=== PATIENT | male | born 1935 | race Caucasian/White ===

== ENCOUNTER 2017-01-07 15:48 | Inpatient (IN) | payer MEDICARE, OTHER ==
[~2017-01-07] VITALS: Ht 162.6 cm; Wt 78.1 kg
[~2017-01-07 15:48] MED LIST: ALFU10TA30 PO; CETI-290 PO; FENO45CA PO; MONT10TA21 PO; ROPI0.255 PO; SAW80CAP2 PO; TIOT185 IH; TRAM50TA4 PO; [UNRECOGNIZED DRUG - CODE] PO
[2017-01-07] MEDS ORDERED: SODIUM CHLORIDE 0.9% 100 ML ONE (15:52)
[2017-01-07] MEDS ORDERED: IOVERSOL 350 MG/ML 100 ML VIAL ONE (15:52)
[2017-01-07 16:01] LABS: EOSINOPHILS % (AUTO) 2.2 % (1.0-6.0); HEMATOCRIT 45.6 % (41-53); HEMOGLOBIN 15.8 g/dL (13.5-17.5); LYMPHOCYTES # (AUTO) 1.9 K/uL (1.0-4.8); LYMPHOCYTES % (AUTO) 25.9 % (22.0-44.0); MEAN CORPUSCULAR HEMOGLOBIN 34.1 pg (26.0-34.0); MEAN CORPUSCULAR HGB CONC 34.6 G/dL (31.0-37.0); MEAN CORPUSCULAR VOLUME 99 fL (80-100); MONOCYTES # (AUTO) 0.9 K/uL (0.1-1.0); MONOCYTES % (AUTO) 11.8 % (2.0-9.0); NEUTROPHILS # (AUTO) 4.4 K/uL (1.8-7.7); NEUTROPHILS % (AUTO) 59.1 % (40.0-70.0); PLATELET COUNT (AUTO) 203 K/uL (150-450); RED BLOOD CELL COUNT(AUTO) 4.63 MIL/uL (4.50-5.90); WHITE BLOOD COUNT (AUTO) 7.4 K/uL (4.5-11.0)
[2017-01-07] MEDS ORDERED: FINA5TAB41 PO (16:05)
[2017-01-07] MEDS ORDERED: GABA-531 PO (16:05)
[2017-01-07] MEDS ORDERED: TIOT185 IH (16:05)
[2017-01-07] MEDS ORDERED: ROPI2 PO (16:05)
[2017-01-07] MEDS ORDERED: TAMS0.4C32 PO (16:05)
[2017-01-07] MEDS ORDERED: CARB1TAB42 PO (16:05)
[2017-01-07 16:09] LABS: ANION GAP 7 mmol/L (8-16); CALCIUM, TOTAL 8.9 mg/dL (8.8-10.5); CARBON DIOXIDE 26 mmol/L (22-29); CHLORIDE 109 mmol/L (98-107); CREATININE 1.24 mg/dL (0.60-1.30); GLOMERULAR FILTR. RATE CALC 56 mL/min (>60); POTASSIUM 3.7 mmol/L (3.5-5.1); SODIUM SERUM 142 mmol/L (136-145); UREA NITROGEN, BLOOD 22 mg/dL (7-18)
[2017-01-07 16:34] LABS: ALANINE AMINOTRANSFERASE 6 U/L (12-78); ALBUMIN 3.4 g/dL (3.4-5.0); ASPARTATE AMINOTRANSFERASE 18 U/L (15-37); BILIRUBIN,TOTAL 1.1 mg/dL (0.1-1.0); CREATINE KINASE MB 2.2 ng/mL (0-5); CREATINE KINASE, TOTAL 110 U/L (39-308); TOTAL PROTEIN, SERUM 6.7 g/dL (6.4-8.2)
[2017-01-07] MEDS ORDERED: MORPHINE SULFATE 2 MG/ML SYRINGE IVP ONE (17:00)
[2017-01-07] MEDS ORDERED: ONDANSETRON HCL 4 MG/2 ML VIAL IVP ONE (17:00)
[2017-01-07] MEDS ORDERED: ACETAMINOPHEN 325 MG TABLET PO PRN ×2 (17:30→19:00)
[2017-01-07] MEDS ORDERED: 0.9% SODIUM CHLORIDE 10 ML SYRINGE IVP PRN ×2 (17:30→19:00)
[2017-01-07] MEDS ORDERED: ONDANSETRON HCL 4 MG/2 ML VIAL IVP PRN ×2 (17:30→19:00)
[2017-01-07 18:42] VITALS: BP 148/89
[2017-01-07] MEDS ORDERED: OxyCODONE HCL/ACETAMINOPHEN 5-325 MG TABLET PO PRN ×2 (19:00)
[2017-01-07] MEDS ORDERED: MAGNESIUM HYDROXIDE SUSPENSION 30 ML UDCUP PO PRN (19:00)
[2017-01-07 19:47] VITALS: BP 141/87
[2017-01-07] MEDS: FINASTERIDE 5 MG TABLET PO SCH (21:05)
[2017-01-07] MEDS: TIOTROPIUM BROMIDE 18 MCG/INH HANDIHALER [5] IH SCH (21:05)
[2017-01-07] MEDS: PANTOPRAZOLE SODIUM 40 MG/VIAL IVP SCH (21:05)
[2017-01-07] MEDS: DOCUSATE SODIUM 100 MG CAPSULE PO SCH (21:05)
[2017-01-07] MEDS: ASPIRIN 325 MG EC TABLET PO SCH (21:06)
[2017-01-07] MEDS: TAMSULOSIN HCL 0.4 MG CAPSULE PO SCH (21:25)
[2017-01-07] MEDS: CARBIDOPA/LEVODOPA 50-200 MG ER TABLET PO SCH (21:25)
[2017-01-07] MEDS: GABAPENTIN 300 MG CAPSULE PO SCH (21:25)
[2017-01-07 21:36] VITALS: BP 141/87
[2017-01-08 00:19] VITALS: BP 101/60
[2017-01-08 04:11] VITALS: BP 105/60
[2017-01-08 06:44] LABS: BASOPHILS % (AUTO) 0.3 % (0.0-2.0); EOSINOPHILS % (AUTO) 4.9 % (1.0-6.0); HEMATOCRIT 47.1 % (41-53); HEMOGLOBIN 15.9 g/dL (13.5-17.5); LYMPHOCYTES # (AUTO) 1.8 K/uL (1.0-4.8); LYMPHOCYTES % (AUTO) 25.4 % (22.0-44.0); MEAN CORPUSCULAR HEMOGLOBIN 33.6 pg (26.0-34.0); MEAN CORPUSCULAR HGB CONC 33.7 G/dL (31.0-37.0); MEAN CORPUSCULAR VOLUME 100 fL (80-100); MONOCYTES # (AUTO) 0.9 K/uL (0.1-1.0); MONOCYTES % (AUTO) 12.5 % (2.0-9.0); NEUTROPHILS % (AUTO) 56.9 % (40.0-70.0); PLATELET COUNT (AUTO) 180 K/uL (150-450); RED BLOOD CELL COUNT(AUTO) 4.73 MIL/uL (4.50-5.90); RED CELL DISTRIBUTION WIDTH 15.2 % (11.5-14.5); WHITE BLOOD COUNT (AUTO) 7.1 K/uL (4.5-11.0)
[2017-01-08 06:45] LABS: ANION GAP 7 mmol/L (8-16); CALCIUM, TOTAL 8.8 mg/dL (8.8-10.5); CARBON DIOXIDE 27 mmol/L (22-29); CHLORIDE 109 mmol/L (98-107); CREATININE 1.09 mg/dL (0.60-1.30); GLOMERULAR FILTR. RATE CALC > 60 mL/min (>60); POTASSIUM 4.3 mmol/L (3.5-5.1); SODIUM SERUM 143 mmol/L (136-145); UREA NITROGEN, BLOOD 21 mg/dL (7-18)
[2017-01-08 07:28] VITALS: BP 110/60
[2017-01-08] MEDS: TAMSULOSIN HCL 0.4 MG CAPSULE PO SCH (09:20)
[2017-01-08] MEDS: DOCUSATE SODIUM 100 MG CAPSULE PO SCH ×2 (09:20→20:22)
[2017-01-08] MEDS: TIOTROPIUM BROMIDE 18 MCG/INH HANDIHALER [5] IH SCH (09:20)
[2017-01-08] MEDS: PANTOPRAZOLE SODIUM 40 MG/VIAL IVP SCH (09:20)
[2017-01-08] MEDS: GABAPENTIN 300 MG CAPSULE PO SCH ×2 (09:20→20:22)
[2017-01-08] MEDS: FINASTERIDE 5 MG TABLET PO SCH (09:21)
[2017-01-08] MEDS: CARBIDOPA/LEVODOPA 50-200 MG ER TABLET PO SCH ×2 (10:19→20:28)
[2017-01-08] MEDS ORDERED: DENTURE ADHESIVE 68 GM CREAM DT PRN (10:30)
[2017-01-08 11:44] VITALS: BP 101/58
[2017-01-08 15:44] VITALS: BP 104/57
[2017-01-08 19:36] VITALS: BP 112/52
[2017-01-08] MEDS: ASPIRIN 325 MG EC TABLET PO SCH (20:22)
[2017-01-09] VITALS (7 sets, daily range): BP systolic 110–136; BP diastolic 55–77
[2017-01-09] MEDS: TIOTROPIUM BROMIDE 18 MCG/INH HANDIHALER [5] IH SCH (08:14)
[2017-01-09] MEDS: PANTOPRAZOLE SODIUM 40 MG/VIAL IVP SCH (08:15)
[2017-01-09] MEDS: DOCUSATE SODIUM 100 MG CAPSULE PO SCH ×2 (08:15→20:21)
[2017-01-09] MEDS: TAMSULOSIN HCL 0.4 MG CAPSULE PO SCH (08:16)
[2017-01-09] MEDS: FINASTERIDE 5 MG TABLET PO SCH (08:16)
[2017-01-09] MEDS: GABAPENTIN 300 MG CAPSULE PO SCH ×2 (08:16→20:21)
[2017-01-09] MEDS: CARBIDOPA/LEVODOPA 50-200 MG ER TABLET PO SCH ×3 (08:16→20:21)
[2017-01-09] MEDS: ASPIRIN 325 MG EC TABLET PO SCH (20:21)
[2017-01-10 04:38] VITALS: BP 126/77
[2017-01-10 07:21] VITALS: BP 133/84
[2017-01-10] MEDS: TIOTROPIUM BROMIDE 18 MCG/INH HANDIHALER [5] IH SCH (08:50)
[2017-01-10] MEDS: DOCUSATE SODIUM 100 MG CAPSULE PO SCH (08:50)
[2017-01-10] MEDS: PANTOPRAZOLE SODIUM 40 MG/VIAL IVP SCH (08:50)
[2017-01-10] MEDS: TAMSULOSIN HCL 0.4 MG CAPSULE PO SCH (08:50)
[2017-01-10] MEDS: GABAPENTIN 300 MG CAPSULE PO SCH (08:50)
[2017-01-10] MEDS: FINASTERIDE 5 MG TABLET PO SCH (08:50)
[2017-01-10] MEDS: CARBIDOPA/LEVODOPA 50-200 MG ER TABLET PO SCH ×2 (08:51→15:32)
[2017-01-10 11:20] VITALS: BP 139/77
[2017-01-10] MEDS ORDERED: ASPI-891 PO (15:17)
[2017-01-10] MEDS ORDERED: CARB1TAB42 PO (15:18)
[2017-01-10] MEDS ORDERED: PANT40TA25 PO (15:19)
[2017-01-10] MEDS ORDERED: DSS100 PO (15:19)
[2017-01-10] MEDS ORDERED: ROPI2 PO (15:20)
[2017-01-10] MEDS ORDERED: ACET-784 PO (15:21)
[2017-01-10] MEDS ORDERED: MOM30 PO (15:22)
[2017-01-10 15:52] VITALS: BP 100/56
[2017-01-11] MEDS ORDERED: TRAM50TA4 PO (12:42)
[2017-01-11] MEDS ORDERED: NAPR220T57 PO (12:42)
== END 2017-01-10 16:35 | DRG 562 ==
LOC: EMS 15:50 → 5S 18:06
PROVIDERS: ADMIT Internal Medicine; ATTEND Internal Medicine
DX: S42.002A Fracture of unspecified part of left clavicle, initial encounter for closed fracture (principal); J96.00 Acute respiratory failure, unspecified whether with hypoxia or hypercapnia; R53.1 Weakness; G20 Parkinson's disease; J44.9 Chronic obstructive pulmonary disease, unspecified; W19.XXXA Unspecified fall, initial encounter; E86.0 Dehydration; N40.0 Benign prostatic hyperplasia without lower urinary tract symptoms; R29.810 Facial weakness; I51.7 Cardiomegaly
CPT/HCPCS: 70496; 70551; 93005; 93306; 93880; 96374; 96375; 97162; 97167; 97530; 97535; 99291; C9113; J2270; J2405; J7050

== ENCOUNTER 2017-01-10 16:44 | Inpatient (IN) | payer MEDICARE, OTHER ==
[~2017-01-10] VITALS: Ht 167.6 cm; Wt 72.1 kg
[~2017-01-10 16:44] MED LIST changes: +ACET-784 PO; -ALFU10TA30 PO; +ASPI-891 PO; +CARB1TAB42 PO; -CETI-290 PO; +DSS100 PO; -FENO45CA PO; +FINA5TAB41 PO; +GABA-531 PO; +MOM30 PO; -MONT10TA21 PO; +PANT40TA25 PO; -ROPI0.255 PO; +ROPI2 PO; -SAW80CAP2 PO; +TAMS0.4C32 PO; -TRAM50TA4 PO; -[UNRECOGNIZED DRUG - CODE] PO
[2017-01-10 17:00] VITALS: BP 97/61
[2017-01-10] MEDS ORDERED: ACETAMINOPHEN 325 MG TABLET PO PRN ×2 (17:15)
[2017-01-10] MEDS ORDERED: MAGNESIUM HYDROXIDE SUSPENSION 30 ML UDCUP PO PRN (17:15)
[2017-01-10] MEDS ORDERED: ONDANSETRON HCL 4 MG TABLET PO PRN (17:15)
[2017-01-10] MEDS ORDERED: TEMAZEPAM 15 MG CAPSULE PO PRN (17:15)
[2017-01-10] MEDS ORDERED: DOCUSATE SODIUM 283 MG/5 ML MINI-ENEMA PR PRN (17:15)
[2017-01-10 20:47] LABS: APPEARANCE,URINE CLOUDY (CLEAR); GLUCOSE, URINE (UA) NEGATIVE (NEGATIVE); KETONES,URINE NEGATIVE (NEGATIVE); LEUKOCYTE ESTERASE ,URINE NEGATIVE (NEGATIVE); OCCULT BLOOD,URINE LARGE (NEGATIVE); PH,URINE 5.5 (5.0-8.0); PROTEIN,URINE NEGATIVE (NEGATIVE)
[2017-01-10 20:57] LABS: RBC,URINE 51-100 /HPF (0-2); SQUAMOUS EPITHELIAL CELL,UR Few /LPF (None Seen)
[2017-01-10] MEDS ORDERED: SENNA 187 MG TABLET PO SCH (21:00)
[2017-01-10] MEDS ORDERED: DOCUSATE SODIUM 100 MG CAPSULE PO SCH (21:00)
[2017-01-10] MEDS: CARBIDOPA/LEVODOPA 50-200 MG ER TABLET PO SCH (21:20)
[2017-01-10] MEDS: ASPIRIN 325 MG EC TABLET PO SCH (21:20)
[2017-01-10] MEDS: GABAPENTIN 300 MG CAPSULE PO SCH (21:20)
[2017-01-10 23:26] VITALS: BP 124/67
[2017-01-11 06:14] LABS: BASOPHILS % (AUTO) 0.4 % (0.0-2.0); EOSINOPHILS % (AUTO) 5.2 % (1.0-6.0); HEMATOCRIT 46.2 % (41-53); HEMOGLOBIN 15.7 g/dL (13.5-17.5); LYMPHOCYTES # (AUTO) 1.7 K/uL (1.0-4.8); LYMPHOCYTES % (AUTO) 20.9 % (22.0-44.0); MEAN CORPUSCULAR HEMOGLOBIN 33.8 pg (26.0-34.0); MEAN CORPUSCULAR HGB CONC 33.9 G/dL (31.0-37.0); MEAN CORPUSCULAR VOLUME 100 fL (80-100); MONOCYTES # (AUTO) 0.8 K/uL (0.1-1.0); NEUTROPHILS # (AUTO) 5.1 K/uL (1.8-7.7); NEUTROPHILS % (AUTO) 63.5 % (40.0-70.0); PLATELET COUNT (AUTO) 198 K/uL (150-450); RED BLOOD CELL COUNT(AUTO) 4.64 MIL/uL (4.50-5.90); RED CELL DISTRIBUTION WIDTH 14.9 % (11.5-14.5)
[2017-01-11 06:27] LABS: ALBUMIN 2.9 g/dL (3.4-5.0); ANION GAP 6 mmol/L (8-16); ASPARTATE AMINOTRANSFERASE 13 U/L (15-37); BILIRUBIN,TOTAL 1.3 mg/dL (0.1-1.0); CALCIUM, TOTAL 8.6 mg/dL (8.8-10.5); CARBON DIOXIDE 28 mmol/L (22-29); CHLORIDE 103 mmol/L (98-107); CREATININE 0.95 mg/dL (0.60-1.30); GLOMERULAR FILTR. RATE CALC > 60 mL/min (>60); SODIUM SERUM 137 mmol/L (136-145); TOTAL PROTEIN, SERUM 6.3 g/dL (6.4-8.2); UREA NITROGEN, BLOOD 14 mg/dL (7-18)
[2017-01-11 07:06] LABS: ALANINE AMINOTRANSFERASE 6 U/L (12-78)
[2017-01-11 08:23] VITALS: BP 118/73
[2017-01-11] MEDS: TIOTROPIUM BROMIDE 18 MCG/INH HANDIHALER [5] IH SCH (08:32)
[2017-01-11] MEDS: PANTOPRAZOLE SODIUM 40 MG DR TABLET PO SCH (08:33)
[2017-01-11] MEDS: FINASTERIDE 5 MG TABLET PO SCH (08:33)
[2017-01-11] MEDS: CARBIDOPA/LEVODOPA 50-200 MG ER TABLET PO SCH ×3 (08:33→21:08)
[2017-01-11] MEDS: TAMSULOSIN HCL 0.4 MG CAPSULE PO SCH (08:34)
[2017-01-11] MEDS: GABAPENTIN 300 MG CAPSULE PO SCH ×2 (08:34→21:08)
[2017-01-11] MEDS: DOCUSATE SODIUM 250 MG CAPSULE PO SCH (08:35)
[2017-01-11] MEDS: LIDOCAINE HCL 5% TRANSDERMAL PATCH TD SCH (09:16)
[2017-01-11] MEDS ORDERED: OxyCODONE HCL/ACETAMINOPHEN 5-325 MG TABLET PO PRN (09:45)
[2017-01-11] MEDS ORDERED: TRAM50TA4 PO (12:42)
[2017-01-11] MEDS ORDERED: NAPR220T57 PO (12:42)
[2017-01-11 16:39] VITALS: BP 93/57
[2017-01-11 16:50] VITALS: BP 110/64
[2017-01-11] MEDS: SENNA 187 MG TABLET PO SCH (21:08)
[2017-01-11] MEDS: ASPIRIN 325 MG EC TABLET PO SCH (21:09)
[2017-01-11] MEDS: -LIDODERM PATCH NOTE- MISC SCH ×2 (21:09)
[2017-01-12] VITALS: BP 109/61
[2017-01-12] MEDS: TraMADol HCL 50 MG TABLET PO PRN ×2 (04:55→09:34)
[2017-01-12 07:20] VITALS: BP 105/67
[2017-01-12] MEDS: TIOTROPIUM BROMIDE 18 MCG/INH HANDIHALER [5] IH SCH (08:34)
[2017-01-12] MEDS: LIDOCAINE HCL 5% TRANSDERMAL PATCH TD SCH (08:34)
[2017-01-12] MEDS: CARBIDOPA/LEVODOPA 50-200 MG ER TABLET PO SCH ×3 (08:34→21:13)
[2017-01-12] MEDS: TAMSULOSIN HCL 0.4 MG CAPSULE PO SCH (08:34)
[2017-01-12] MEDS: GABAPENTIN 300 MG CAPSULE PO SCH ×2 (08:35→21:13)
[2017-01-12] MEDS: PANTOPRAZOLE SODIUM 40 MG DR TABLET PO SCH (08:35)
[2017-01-12] MEDS: FINASTERIDE 5 MG TABLET PO SCH (08:35)
[2017-01-12] MEDS: DOCUSATE SODIUM 250 MG CAPSULE PO SCH (08:35)
[2017-01-12] MEDS: ENOXAPARIN SODIUM 40 MG/0.4 ML PF SYRINGE SQ SCH (10:54)
[2017-01-12] MEDS ORDERED: *NON-FORMULARY MED [ENTER DRUG, DOSE, FREQ IN COMMENTS] CLINICAL ONE ×2 (11:45)
[2017-01-12] MEDS: ROPINIROLE 4 MG PO SCH ×2 (13:00→21:14)
[2017-01-12 15:21] VITALS: BP 98/58
[2017-01-12] MEDS: ASPIRIN 325 MG EC TABLET PO SCH (21:13)
[2017-01-12] MEDS: SENNA 187 MG TABLET PO SCH (21:13)
[2017-01-12] MEDS: -LIDODERM PATCH NOTE- MISC SCH ×2 (21:14)
[2017-01-12 23:45] VITALS: BP 109/71
[2017-01-13] MEDS: TraMADol HCL 50 MG TABLET PO PRN ×2 (05:08→08:25)
[2017-01-13 07:34] VITALS: BP 116/75
[2017-01-13] MEDS: DOCUSATE SODIUM 250 MG CAPSULE PO SCH (08:19)
[2017-01-13] MEDS: ROPINIROLE 4 MG PO SCH ×2 (08:19→21:04)
[2017-01-13] MEDS: FINASTERIDE 5 MG TABLET PO SCH (08:19)
[2017-01-13] MEDS: ENOXAPARIN SODIUM 40 MG/0.4 ML PF SYRINGE SQ SCH (08:19)
[2017-01-13] MEDS: GABAPENTIN 300 MG CAPSULE PO SCH ×2 (08:19→21:04)
[2017-01-13] MEDS: PANTOPRAZOLE SODIUM 40 MG DR TABLET PO SCH (08:19)
[2017-01-13] MEDS: TAMSULOSIN HCL 0.4 MG CAPSULE PO SCH (08:19)
[2017-01-13] MEDS: TIOTROPIUM BROMIDE 18 MCG/INH HANDIHALER [5] IH SCH (08:20)
[2017-01-13] MEDS: CARBIDOPA/LEVODOPA 50-200 MG ER TABLET PO SCH ×3 (08:21→21:04)
[2017-01-13] MEDS: LIDOCAINE HCL 5% TRANSDERMAL PATCH TD SCH (08:21)
[2017-01-13 16:13] VITALS: BP 103/66
[2017-01-13] MEDS: -LIDODERM PATCH NOTE- MISC SCH ×2 (21:04)
[2017-01-13] MEDS: SENNA 187 MG TABLET PO SCH (21:04)
[2017-01-13] MEDS: ASPIRIN 325 MG EC TABLET PO SCH (21:04)
[2017-01-13 23:45] VITALS: BP 109/71
[2017-01-14 08:17] VITALS: BP 111/60
[2017-01-14] MEDS: LIDOCAINE HCL 5% TRANSDERMAL PATCH TD SCH (08:50)
[2017-01-14] MEDS: DOCUSATE SODIUM 250 MG CAPSULE PO SCH (08:50)
[2017-01-14] MEDS: TAMSULOSIN HCL 0.4 MG CAPSULE PO SCH (08:51)
[2017-01-14] MEDS: ROPINIROLE 4 MG PO SCH ×2 (08:51→20:38)
[2017-01-14] MEDS: GABAPENTIN 300 MG CAPSULE PO SCH ×2 (08:51→20:39)
[2017-01-14] MEDS: ENOXAPARIN SODIUM 40 MG/0.4 ML PF SYRINGE SQ SCH (08:51)
[2017-01-14] MEDS: TIOTROPIUM BROMIDE 18 MCG/INH HANDIHALER [5] IH SCH (08:51)
[2017-01-14] MEDS: PANTOPRAZOLE SODIUM 40 MG DR TABLET PO SCH (08:51)
[2017-01-14] MEDS: CARBIDOPA/LEVODOPA 50-200 MG ER TABLET PO SCH ×3 (08:52→20:39)
[2017-01-14] MEDS: FINASTERIDE 5 MG TABLET PO SCH (08:52)
[2017-01-14] MEDS: TraMADol HCL 50 MG TABLET PO PRN ×2 (12:31→22:13)
[2017-01-14 16:00] VITALS: BP 107/66
[2017-01-14] MEDS: -LIDODERM PATCH NOTE- MISC SCH ×2 (20:38)
[2017-01-14] MEDS: SENNA 187 MG TABLET PO SCH (20:39)
[2017-01-14] MEDS: ASPIRIN 325 MG EC TABLET PO SCH (20:39)
[2017-01-15 03:00] VITALS: BP 114/61
[2017-01-15 07:30] VITALS: BP 105/68
[2017-01-15] MEDS: TAMSULOSIN HCL 0.4 MG CAPSULE PO SCH (08:43)
[2017-01-15] MEDS: GABAPENTIN 300 MG CAPSULE PO SCH ×2 (08:44→20:52)
[2017-01-15] MEDS: DOCUSATE SODIUM 250 MG CAPSULE PO SCH (08:44)
[2017-01-15] MEDS: FINASTERIDE 5 MG TABLET PO SCH (08:45)
[2017-01-15] MEDS: ROPINIROLE 4 MG PO SCH ×2 (08:45→20:52)
[2017-01-15] MEDS: CARBIDOPA/LEVODOPA 50-200 MG ER TABLET PO SCH ×3 (08:46→20:52)
[2017-01-15] MEDS: PANTOPRAZOLE SODIUM 40 MG DR TABLET PO SCH (08:46)
[2017-01-15] MEDS: LIDOCAINE HCL 5% TRANSDERMAL PATCH TD SCH (08:46)
[2017-01-15] MEDS: TIOTROPIUM BROMIDE 18 MCG/INH HANDIHALER [5] IH SCH (08:46)
[2017-01-15] MEDS: ENOXAPARIN SODIUM 40 MG/0.4 ML PF SYRINGE SQ SCH (08:47)
[2017-01-15 15:51] VITALS: BP 101/60
[2017-01-15] MEDS: TraMADol HCL 50 MG TABLET PO PRN (16:46)
[2017-01-15] MEDS ORDERED: WATER FOR IRRIGATION,STERILE 1000 ML SOLUTION BOTTLE ONE (18:39)
[2017-01-15] MEDS: -LIDODERM PATCH NOTE- MISC SCH ×2 (20:51)
[2017-01-15] MEDS: SENNA 187 MG TABLET PO SCH (20:52)
[2017-01-15] MEDS: ASPIRIN 325 MG EC TABLET PO SCH (20:52)
[2017-01-16 03:30] VITALS: BP 109/69
[2017-01-16 08:10] VITALS: BP 102/61
[2017-01-16] MEDS: FINASTERIDE 5 MG TABLET PO SCH (08:32)
[2017-01-16] MEDS: ROPINIROLE 4 MG PO SCH ×2 (08:32→20:33)
[2017-01-16] MEDS: CARBIDOPA/LEVODOPA 50-200 MG ER TABLET PO SCH ×3 (08:32→20:33)
[2017-01-16] MEDS: TAMSULOSIN HCL 0.4 MG CAPSULE PO SCH (08:33)
[2017-01-16] MEDS: PANTOPRAZOLE SODIUM 40 MG DR TABLET PO SCH (08:33)
[2017-01-16] MEDS: TIOTROPIUM BROMIDE 18 MCG/INH HANDIHALER [5] IH SCH (08:33)
[2017-01-16] MEDS: GABAPENTIN 300 MG CAPSULE PO SCH ×2 (08:33→20:33)
[2017-01-16] MEDS: DOCUSATE SODIUM 250 MG CAPSULE PO SCH (08:33)
[2017-01-16] MEDS: LIDOCAINE HCL 5% TRANSDERMAL PATCH TD SCH (08:34)
[2017-01-16] MEDS: ENOXAPARIN SODIUM 40 MG/0.4 ML PF SYRINGE SQ SCH (08:35)
[2017-01-16 15:32] VITALS: BP 105/64
[2017-01-16] MEDS: TraMADol HCL 50 MG TABLET PO PRN (15:39)
[2017-01-16] MEDS: ASPIRIN 325 MG EC TABLET PO SCH (20:33)
[2017-01-16] MEDS: SENNA 187 MG TABLET PO SCH (20:33)
[2017-01-16] MEDS: -LIDODERM PATCH NOTE- MISC SCH ×2 (20:34)
[2017-01-16 23:35] VITALS: BP 123/89
[2017-01-17 07:09] VITALS: BP 105/57
[2017-01-17] MEDS: TraMADol HCL 50 MG TABLET PO PRN ×2 (08:00→16:51)
[2017-01-17] MEDS: ENOXAPARIN SODIUM 40 MG/0.4 ML PF SYRINGE SQ SCH (08:00)
[2017-01-17] MEDS: ROPINIROLE 4 MG PO SCH ×2 (08:00→20:35)
[2017-01-17] MEDS: LIDOCAINE HCL 5% TRANSDERMAL PATCH TD SCH (08:00)
[2017-01-17] MEDS: TIOTROPIUM BROMIDE 18 MCG/INH HANDIHALER [5] IH SCH (08:01)
[2017-01-17] MEDS: TAMSULOSIN HCL 0.4 MG CAPSULE PO SCH (08:03)
[2017-01-17] MEDS: FINASTERIDE 5 MG TABLET PO SCH (08:04)
[2017-01-17] MEDS: GABAPENTIN 300 MG CAPSULE PO SCH ×2 (08:04→20:35)
[2017-01-17] MEDS: CARBIDOPA/LEVODOPA 50-200 MG ER TABLET PO SCH ×3 (08:04→20:35)
[2017-01-17] MEDS: PANTOPRAZOLE SODIUM 40 MG DR TABLET PO SCH (08:04)
[2017-01-17] MEDS: DOCUSATE SODIUM 250 MG CAPSULE PO SCH (08:04)
[2017-01-17] MEDS: GuaiFENesin/D-METHORPHAN [SUGAR-FREE] 200-20MG/10 ML SYRUP UDCUP PO SCH ×3 (13:05→20:35)
[2017-01-17 15:00] VITALS: BP 102/68
[2017-01-17] MEDS: SENNA 187 MG TABLET PO SCH (20:35)
[2017-01-17] MEDS: ASPIRIN 325 MG EC TABLET PO SCH (20:35)
[2017-01-17] MEDS: -LIDODERM PATCH NOTE- MISC SCH ×2 (20:38)
[2017-01-18 03:00] VITALS: BP 95/60
[2017-01-18] MEDS: TIOTROPIUM BROMIDE 18 MCG/INH HANDIHALER [5] IH SCH (08:12)
[2017-01-18] MEDS: TAMSULOSIN HCL 0.4 MG CAPSULE PO SCH (08:13)
[2017-01-18] MEDS: PANTOPRAZOLE SODIUM 40 MG DR TABLET PO SCH (08:13)
[2017-01-18] MEDS: GABAPENTIN 300 MG CAPSULE PO SCH ×2 (08:13→20:01)
[2017-01-18] MEDS: CARBIDOPA/LEVODOPA 50-200 MG ER TABLET PO SCH ×3 (08:13→20:01)
[2017-01-18] MEDS: ROPINIROLE 4 MG PO SCH ×2 (08:13→20:01)
[2017-01-18] MEDS: GuaiFENesin/D-METHORPHAN [SUGAR-FREE] 200-20MG/10 ML SYRUP UDCUP PO SCH ×3 (08:14→20:25)
[2017-01-18] MEDS: ENOXAPARIN SODIUM 40 MG/0.4 ML PF SYRINGE SQ SCH (08:14)
[2017-01-18] MEDS: FINASTERIDE 5 MG TABLET PO SCH (08:14)
[2017-01-18] MEDS: POLYETHYLENE GLYCOL 3350 17 GM PACKET PO SCH (08:14)
[2017-01-18] MEDS: DOCUSATE SODIUM 250 MG CAPSULE PO SCH (08:14)
[2017-01-18] MEDS: LIDOCAINE HCL 5% TRANSDERMAL PATCH TD SCH (08:15)
[2017-01-18 08:23] VITALS: BP 101/64
[2017-01-18] MEDS: TraMADol HCL 50 MG TABLET PO PRN ×3 (08:53→19:19)
[2017-01-18 15:24] VITALS: BP 99/60
[2017-01-18] MEDS: ASPIRIN 325 MG EC TABLET PO SCH (20:01)
[2017-01-18] MEDS: SENNA 187 MG TABLET PO SCH (20:02)
[2017-01-18] MEDS: -LIDODERM PATCH NOTE- MISC SCH ×2 (20:03)
[2017-01-19 03:40] VITALS: BP 98/63
[2017-01-19 07:07] VITALS: BP 111/73
[2017-01-19] MEDS: ROPINIROLE 4 MG PO SCH ×2 (07:51→20:38)
[2017-01-19] MEDS: LIDOCAINE HCL 5% TRANSDERMAL PATCH TD SCH (07:51)
[2017-01-19] MEDS: POLYETHYLENE GLYCOL 3350 17 GM PACKET PO SCH (07:51)
[2017-01-19] MEDS: ENOXAPARIN SODIUM 40 MG/0.4 ML PF SYRINGE SQ SCH (07:51)
[2017-01-19] MEDS: TIOTROPIUM BROMIDE 18 MCG/INH HANDIHALER [5] IH SCH (07:51)
[2017-01-19] MEDS: GABAPENTIN 300 MG CAPSULE PO SCH ×2 (07:52→20:39)
[2017-01-19] MEDS: PANTOPRAZOLE SODIUM 40 MG DR TABLET PO SCH (07:52)
[2017-01-19] MEDS: TAMSULOSIN HCL 0.4 MG CAPSULE PO SCH (07:52)
[2017-01-19] MEDS: CARBIDOPA/LEVODOPA 50-200 MG ER TABLET PO SCH ×3 (07:52→20:38)
[2017-01-19] MEDS: FINASTERIDE 5 MG TABLET PO SCH (07:52)
[2017-01-19] MEDS: GuaiFENesin/D-METHORPHAN [SUGAR-FREE] 200-20MG/10 ML SYRUP UDCUP PO SCH ×3 (07:52→20:38)
[2017-01-19] MEDS: DOCUSATE SODIUM 250 MG CAPSULE PO SCH (07:52)
[2017-01-19] MEDS: TraMADol HCL 50 MG TABLET PO PRN (10:33)
[2017-01-19 15:33] VITALS: BP 100/58
[2017-01-19] MEDS: ASPIRIN 325 MG EC TABLET PO SCH (20:37)
[2017-01-19] MEDS: SENNA 187 MG TABLET PO SCH (20:38)
[2017-01-19] MEDS: -LIDODERM PATCH NOTE- MISC SCH ×2 (20:39)
[2017-01-20 00:26] VITALS: BP 123/67
[2017-01-20 07:05] VITALS: BP 123/63
[2017-01-20] MEDS: TIOTROPIUM BROMIDE 18 MCG/INH HANDIHALER [5] IH SCH (07:29)
[2017-01-20] MEDS: PANTOPRAZOLE SODIUM 40 MG DR TABLET PO SCH (07:30)
[2017-01-20] MEDS: LIDOCAINE HCL 5% TRANSDERMAL PATCH TD SCH (07:30)
[2017-01-20] MEDS: POLYETHYLENE GLYCOL 3350 17 GM PACKET PO SCH (07:30)
[2017-01-20] MEDS: FINASTERIDE 5 MG TABLET PO SCH (07:30)
[2017-01-20] MEDS: DOCUSATE SODIUM 250 MG CAPSULE PO SCH (07:30)
[2017-01-20] MEDS: GuaiFENesin/D-METHORPHAN [SUGAR-FREE] 200-20MG/10 ML SYRUP UDCUP PO SCH ×3 (07:30→20:00)
[2017-01-20] MEDS: ROPINIROLE 4 MG PO SCH ×2 (07:30→20:00)
[2017-01-20] MEDS: TAMSULOSIN HCL 0.4 MG CAPSULE PO SCH (07:30)
[2017-01-20] MEDS: ENOXAPARIN SODIUM 40 MG/0.4 ML PF SYRINGE SQ SCH (07:30)
[2017-01-20] MEDS: GABAPENTIN 300 MG CAPSULE PO SCH ×2 (07:30→20:00)
[2017-01-20] MEDS: CARBIDOPA/LEVODOPA 50-200 MG ER TABLET PO SCH ×3 (07:31→20:00)
[2017-01-20 15:19] VITALS: BP 109/61
[2017-01-20] MEDS: TraMADol HCL 50 MG TABLET PO PRN (20:00)
[2017-01-20] MEDS: -LIDODERM PATCH NOTE- MISC SCH ×2 (20:01)
[2017-01-20] MEDS: SENNA 187 MG TABLET PO SCH (20:01)
[2017-01-20] MEDS: ASPIRIN 325 MG EC TABLET PO SCH (20:01)
[2017-01-20 23:30] VITALS: BP 111/76
[2017-01-21 07:20] VITALS: BP 123/77
[2017-01-21] MEDS: TIOTROPIUM BROMIDE 18 MCG/INH HANDIHALER [5] IH SCH (07:58)
[2017-01-21] MEDS: LIDOCAINE HCL 5% TRANSDERMAL PATCH TD SCH (07:58)
[2017-01-21] MEDS: POLYETHYLENE GLYCOL 3350 17 GM PACKET PO SCH (07:58)
[2017-01-21] MEDS: GABAPENTIN 300 MG CAPSULE PO SCH ×2 (07:59→21:07)
[2017-01-21] MEDS: TraMADol HCL 50 MG TABLET PO PRN (07:59)
[2017-01-21] MEDS: TAMSULOSIN HCL 0.4 MG CAPSULE PO SCH (07:59)
[2017-01-21] MEDS: CARBIDOPA/LEVODOPA 50-200 MG ER TABLET PO SCH ×3 (07:59→20:56)
[2017-01-21] MEDS: FINASTERIDE 5 MG TABLET PO SCH (07:59)
[2017-01-21] MEDS: ROPINIROLE 4 MG PO SCH ×2 (07:59→20:56)
[2017-01-21] MEDS: DOCUSATE SODIUM 250 MG CAPSULE PO SCH (07:59)
[2017-01-21] MEDS: ENOXAPARIN SODIUM 40 MG/0.4 ML PF SYRINGE SQ SCH (07:59)
[2017-01-21] MEDS: GuaiFENesin/D-METHORPHAN [SUGAR-FREE] 200-20MG/10 ML SYRUP UDCUP PO SCH ×3 (08:00→20:56)
[2017-01-21] MEDS: PANTOPRAZOLE SODIUM 40 MG DR TABLET PO SCH (08:00)
[2017-01-21 15:15] VITALS: BP 103/63
[2017-01-21 17:41] VITALS: BP 105/59
[2017-01-21] MEDS: -LIDODERM PATCH NOTE- MISC SCH ×2 (20:55)
[2017-01-21] MEDS: SENNA 187 MG TABLET PO SCH (20:56)
[2017-01-21] MEDS: ASPIRIN 325 MG EC TABLET PO SCH (20:56)
[2017-01-21 23:28] VITALS: BP 102/61
[2017-01-22 07:03] VITALS: BP 114/67
[2017-01-22] MEDS: LIDOCAINE HCL 5% TRANSDERMAL PATCH TD SCH (07:50)
[2017-01-22] MEDS: DOCUSATE SODIUM 250 MG CAPSULE PO SCH (07:50)
[2017-01-22] MEDS: GuaiFENesin/D-METHORPHAN [SUGAR-FREE] 200-20MG/10 ML SYRUP UDCUP PO SCH ×3 (07:50→20:39)
[2017-01-22] MEDS: CARBIDOPA/LEVODOPA 50-200 MG ER TABLET PO SCH ×3 (07:50→20:39)
[2017-01-22] MEDS: TIOTROPIUM BROMIDE 18 MCG/INH HANDIHALER [5] IH SCH (07:50)
[2017-01-22] MEDS: ENOXAPARIN SODIUM 40 MG/0.4 ML PF SYRINGE SQ SCH (07:50)
[2017-01-22] MEDS: POLYETHYLENE GLYCOL 3350 17 GM PACKET PO SCH (07:50)
[2017-01-22] MEDS: ROPINIROLE 4 MG PO SCH ×2 (07:50→20:39)
[2017-01-22] MEDS: TAMSULOSIN HCL 0.4 MG CAPSULE PO SCH (07:50)
[2017-01-22] MEDS: GABAPENTIN 300 MG CAPSULE PO SCH ×2 (07:50→20:40)
[2017-01-22] MEDS: FINASTERIDE 5 MG TABLET PO SCH (07:50)
[2017-01-22] MEDS: PANTOPRAZOLE SODIUM 40 MG DR TABLET PO SCH (07:50)
[2017-01-22 15:21] VITALS: BP 97/61
[2017-01-22 16:35] VITALS: BP 99/62
[2017-01-22] MEDS: SENNA 187 MG TABLET PO SCH (20:39)
[2017-01-22] MEDS: ASPIRIN 325 MG EC TABLET PO SCH (20:39)
[2017-01-22] MEDS: -LIDODERM PATCH NOTE- MISC SCH ×2 (20:40)
[2017-01-23 02:30] VITALS: BP 115/63
[2017-01-23 07:03] VITALS: BP 97/64
[2017-01-23] MEDS: TIOTROPIUM BROMIDE 18 MCG/INH HANDIHALER [5] IH SCH (08:02)
[2017-01-23] MEDS: LIDOCAINE HCL 5% TRANSDERMAL PATCH TD SCH (08:02)
[2017-01-23] MEDS: TAMSULOSIN HCL 0.4 MG CAPSULE PO SCH (08:03)
[2017-01-23] MEDS: GuaiFENesin/D-METHORPHAN [SUGAR-FREE] 200-20MG/10 ML SYRUP UDCUP PO SCH ×3 (08:03→21:26)
[2017-01-23] MEDS: POLYETHYLENE GLYCOL 3350 17 GM PACKET PO SCH (08:03)
[2017-01-23] MEDS: PANTOPRAZOLE SODIUM 40 MG DR TABLET PO SCH (08:03)
[2017-01-23] MEDS: ROPINIROLE 4 MG PO SCH ×2 (08:03→21:26)
[2017-01-23] MEDS: DOCUSATE SODIUM 250 MG CAPSULE PO SCH (08:03)
[2017-01-23] MEDS: GABAPENTIN 300 MG CAPSULE PO SCH ×2 (08:04→21:26)
[2017-01-23] MEDS: FINASTERIDE 5 MG TABLET PO SCH (08:04)
[2017-01-23] MEDS: CARBIDOPA/LEVODOPA 50-200 MG ER TABLET PO SCH ×3 (08:04→21:26)
[2017-01-23] MEDS: TraMADol HCL 50 MG TABLET PO PRN ×2 (08:14→18:56)
[2017-01-23 15:31] VITALS: BP 104/63
[2017-01-23] MEDS: -LIDODERM PATCH NOTE- MISC SCH ×2 (21:24)
[2017-01-23] MEDS: ASPIRIN 325 MG EC TABLET PO SCH (21:26)
[2017-01-23] MEDS: SENNA 187 MG TABLET PO SCH (21:26)
[2017-01-24] VITALS: BP 108/70
[2017-01-24 06:32] LABS: CALCIUM, TOTAL 8.9 mg/dL (8.8-10.5); CREATININE 1.23 mg/dL (0.60-1.30); POTASSIUM 4.6 mmol/L (3.5-5.1)
[2017-01-24 06:45] LABS: BASOPHILS % (AUTO) 0.8 % (0.0-2.0); EOSINOPHILS % (AUTO) 5.3 % (1.0-6.0); HEMATOCRIT 45.7 % (41-53); HEMOGLOBIN 15.5 g/dL (13.5-17.5); LYMPHOCYTES # (AUTO) 1.9 K/uL (1.0-4.8); LYMPHOCYTES % (AUTO) 27.4 % (22.0-44.0); MEAN CORPUSCULAR HEMOGLOBIN 33.8 pg (26.0-34.0); MEAN CORPUSCULAR HGB CONC 33.9 G/dL (31.0-37.0); MEAN CORPUSCULAR VOLUME 100 fL (80-100); MONOCYTES # (AUTO) 0.7 K/uL (0.1-1.0); MONOCYTES % (AUTO) 10.4 % (2.0-9.0); NEUTROPHILS # (AUTO) 3.9 K/uL (1.8-7.7); NEUTROPHILS % (AUTO) 56.1 % (40.0-70.0); PLATELET COUNT (AUTO) 309 K/uL (150-450); RED BLOOD CELL COUNT(AUTO) 4.59 MIL/uL (4.50-5.90); RED CELL DISTRIBUTION WIDTH 14.3 % (11.5-14.5)
[2017-01-24 07:04] VITALS: BP 113/74
[2017-01-24] MEDS: GuaiFENesin/D-METHORPHAN [SUGAR-FREE] 200-20MG/10 ML SYRUP UDCUP PO SCH ×3 (07:52→20:37)
[2017-01-24] MEDS: POLYETHYLENE GLYCOL 3350 17 GM PACKET PO SCH (07:52)
[2017-01-24] MEDS: CARBIDOPA/LEVODOPA 50-200 MG ER TABLET PO SCH ×3 (07:52→20:38)
[2017-01-24] MEDS: PANTOPRAZOLE SODIUM 40 MG DR TABLET PO SCH (07:56)
[2017-01-24] MEDS: DOCUSATE SODIUM 250 MG CAPSULE PO SCH (07:56)
[2017-01-24] MEDS: FINASTERIDE 5 MG TABLET PO SCH (07:56)
[2017-01-24] MEDS: TAMSULOSIN HCL 0.4 MG CAPSULE PO SCH (07:57)
[2017-01-24] MEDS: GABAPENTIN 300 MG CAPSULE PO SCH ×2 (07:57→20:37)
[2017-01-24] MEDS: LIDOCAINE HCL 5% TRANSDERMAL PATCH TD SCH (07:57)
[2017-01-24] MEDS: TIOTROPIUM BROMIDE 18 MCG/INH HANDIHALER [5] IH SCH (07:57)
[2017-01-24] MEDS: ROPINIROLE 4 MG PO SCH ×2 (07:57→20:38)
[2017-01-24 15:20] VITALS: BP 107/65
[2017-01-24] MEDS: SENNA 187 MG TABLET PO SCH (20:37)
[2017-01-24] MEDS: ASPIRIN 325 MG EC TABLET PO SCH (20:37)
[2017-01-24] MEDS: -LIDODERM PATCH NOTE- MISC SCH ×2 (20:38)
[2017-01-25 01:45] VITALS: BP 130/73
[2017-01-25] MEDS ORDERED: ASPI-1213 PO (02:13)
[2017-01-25] MEDS ORDERED: PANT20TA PO (02:13)
[2017-01-25 07:17] VITALS: BP 130/70
[2017-01-25] MEDS: TIOTROPIUM BROMIDE 18 MCG/INH HANDIHALER [5] IH SCH (07:56)
[2017-01-25] MEDS: ROPINIROLE 4 MG PO SCH ×2 (07:56→20:35)
[2017-01-25] MEDS: GuaiFENesin/D-METHORPHAN [SUGAR-FREE] 200-20MG/10 ML SYRUP UDCUP PO SCH ×3 (07:57→20:35)
[2017-01-25] MEDS: CARBIDOPA/LEVODOPA 50-200 MG ER TABLET PO SCH ×3 (07:57→20:35)
[2017-01-25] MEDS: GABAPENTIN 300 MG CAPSULE PO SCH ×2 (07:57→20:35)
[2017-01-25] MEDS: FINASTERIDE 5 MG TABLET PO SCH (07:57)
[2017-01-25] MEDS: PANTOPRAZOLE SODIUM 40 MG DR TABLET PO SCH (07:58)
[2017-01-25] MEDS: DOCUSATE SODIUM 250 MG CAPSULE PO SCH (07:58)
[2017-01-25] MEDS: TAMSULOSIN HCL 0.4 MG CAPSULE PO SCH (07:58)
[2017-01-25] MEDS: POLYETHYLENE GLYCOL 3350 17 GM PACKET PO SCH (07:58)
[2017-01-25] MEDS: LIDOCAINE HCL 5% TRANSDERMAL PATCH TD SCH (07:58)
[2017-01-25 16:21] VITALS: BP 133/72
[2017-01-25] MEDS: -LIDODERM PATCH NOTE- MISC SCH ×2 (20:35)
[2017-01-25] MEDS: ASPIRIN 325 MG EC TABLET PO SCH (20:35)
[2017-01-25] MEDS: SENNA 187 MG TABLET PO SCH (20:35)
[2017-01-26 00:52] VITALS: BP 112/71
[2017-01-26 07:30] VITALS: BP 108/66
[2017-01-26] MEDS: DOCUSATE SODIUM 250 MG CAPSULE PO SCH (08:27)
[2017-01-26] MEDS: PANTOPRAZOLE SODIUM 40 MG DR TABLET PO SCH (08:27)
[2017-01-26] MEDS: CARBIDOPA/LEVODOPA 50-200 MG ER TABLET PO SCH (08:27)
[2017-01-26] MEDS: ROPINIROLE 4 MG PO SCH (08:27)
[2017-01-26] MEDS: FINASTERIDE 5 MG TABLET PO SCH (08:27)
[2017-01-26] MEDS: TAMSULOSIN HCL 0.4 MG CAPSULE PO SCH (08:27)
[2017-01-26] MEDS: POLYETHYLENE GLYCOL 3350 17 GM PACKET PO SCH (08:27)
[2017-01-26] MEDS: GuaiFENesin/D-METHORPHAN [SUGAR-FREE] 200-20MG/10 ML SYRUP UDCUP PO SCH (08:27)
[2017-01-26] MEDS: LIDOCAINE HCL 5% TRANSDERMAL PATCH TD SCH (08:27)
[2017-01-26] MEDS: TIOTROPIUM BROMIDE 18 MCG/INH HANDIHALER [5] IH SCH (08:27)
[2017-01-26] MEDS: GABAPENTIN 300 MG CAPSULE PO SCH (08:28)
[2017-01-26] MEDS ORDERED: LIDO700A15 TD (10:56)
[2017-01-26] MEDS ORDERED: MIRALAX PO (10:58)
[2017-01-26] MEDS ORDERED: DOCU250C16 PO (11:03)
== END 2017-01-26 13:15 | disposition home health service (06) | DRG 57 ==
LOC: 2WR 16:45
PROVIDERS: ADMIT Physical Medicine & Rehabilitation; ATTEND Physical Medicine & Rehabilitation
PROC: 5A09357 Assistance with Respiratory Ventilation, Less than 24 Consecutive Hours, Continuous Positive Airway Pressure (ICD-10-PCS; principal; 2017-01-12)
DX: G20 Parkinson's disease (principal); E44.0 Moderate protein-calorie malnutrition; G81.94 Hemiplegia, unspecified affecting left nondominant side; I08.3 Combined rheumatic disorders of mitral, aortic and tricuspid valves; I27.20 Pulmonary hypertension, unspecified; J44.9 Chronic obstructive pulmonary disease, unspecified; M19.90 Unspecified osteoarthritis, unspecified site; M85.80 Other specified disorders of bone density and structure, unspecified site; N40.1 Benign prostatic hyperplasia with lower urinary tract symptoms; R33.8 Other retention of urine; R47.1 Dysarthria and anarthria; M25.512 Pain in left shoulder; K59.00 Constipation, unspecified; R49.0 Dysphonia; G47.33 Obstructive sleep apnea (adult) (pediatric); Z87.891 Personal history of nicotine dependence; Z87.81 Personal history of (healed) traumatic fracture; Z68.25 Body mass index [BMI] 25.0-25.9, adult; Z79.899 Other long term (current) drug therapy; Z90.49 Acquired absence of other specified parts of digestive tract
CPT/HCPCS: 87081; 92507; 92523; 94660; 97110; 97112; 97116; 97150; 97162; 97167; 97530; 97535; 97537; 99366; J1650